=== PATIENT | female | born 1970 | race Caucasian/White ===

== ENCOUNTER 2018-03-17 15:48 | Emergency (ER) | payer SELFPAY ==
[2018-03-17 16:07] VITALS: BP 116/84
--- NOTE | 2018-03-17 16:43 | RAD ---
Indication: RIGHT shoulder and clavicle pain and swelling. Comparison: No relevant prior exams available on the [facility] for comparison. Technique: Internal rotation AP, external rotation Grashey, scapular Y, axillary views RIGHT shoulder Report: Negative for fracture about the shoulder or clavicle. Normal acromioclavicular and glenohumeral joint alignment. Negative for stigmata of calcific tendinopathy. Unremarkable soft tissue contours. IMPRESSION: Negative radiographic exam of the RIGHT shoulder.
[2018-03-17] MEDS ORDERED: Naproxen TAB* 250 MG PO ONE (16:53)
--- NOTE | 2018-03-17 17:04 | UC ---
Upper Extremity HPI - HPI Summary HPI Summary: 47 year old female with no significant pmhx here right shoulder pain. 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 Denies any numbness/tingling or any other complaints. Reports pain with ranging of right shoulder, radiating to mid-sternal area. No exertional symptoms. No cardiac history or familial history of sudden cardiac . - History of Current Complaint Chief Complaint: UCUpperExtremity Stated Complaint: SHOULDER INJURY Time Seen by Provider: 03/17/18 16:43 Onset/Duration: Gradual Onset Severity Initially: Mild Pain Intensity: 0 Character: Sharp Aggravating Factor(s): Movement Alleviating Factor(s): Ice Associated Signs And Symptoms: Positive: Swelling - Allergies/Home Medications Allergies/Adverse Reactions: Allergies Allergy/AdvReac Type Severity Reaction Status Date / Time morphine Allergy Rash And Verified 03/17/18 15:59 Itching paroxetine [From Paxil] Allergy See Comment Verified 03/17/18 16:00 Home Medications: Home Medications NK [No Home Medications Reported] 03/17/18 [History Confirmed 03/17/18] PMH/Surg Hx/FS Hx/Imm Hx Previously Healthy: Yes - Surgical History Surgical History: Yes Surgery Procedure, Year, and Place: hysterectomy - Family History Known Family History: Negative: Cardiac Disease - Social History Alcohol Use: Occasionally Substance Use Type: None Smoking Status (MU): Never Smoked Tobacco Review of Systems Constitutional: Negative Skin: Negative Eyes: Negative ENT: Negative Respiratory: Negative Cardiovascular: Negative Gastrointestinal: Negative Genitourinary: Negative Motor: Negative Neurovascular: Negative Musculoskeletal: Decreased ROM - right shoulder Neurological: Negative Psychological: Negative All Other Systems Reviewed And Are Negative: Yes Physical Exam Triage Information Reviewed: Yes Appearance: Well-Appearing, No Pain Distress Vital Signs: Initial Vital Signs Temp 36.8 C 03/17/18 15:58 Pulse 67 03/17/18 15:58 Resp 18 03/17/18 15:58 BP 116/84 03/17/18 15:58 Pulse Ox 99 03/17/18 15:58 Respiratory Exam: Normal Cardiovascular Exam: Normal Abdominal Exam: Normal Musculoskeletal Exam: Normal Musculoskeletal: Positive: ROM Limited @ - right shoulder Skin Exam: Normal Upper Extremity Course/Dx - Differential Dx/Diagnosis Differential Diagnosis/HQI/PQRI: Arthritis, Bursitis, Strain Provider Diagnoses: shoulder strain. EKG to r/o cardiac etiology (unlikely) Discharge - Sign-Out/Discharge Documenting (check all that apply): Discharge/Admit/Transfer - Discharge Plan Condition: Good Disposition: HOME Patient Education Materials: Shoulder Sprain (ED) Referrals: Stephanie RUSH,Kevin Byrd [Primary Care Provider] - - Billing Disposition and Condition Condition: GOOD Disposition: Home
== END 2018-03-17 17:21 | disposition home or self-care (01) ==
LOC: UCEAST 15:48
DX: S46.911A Strain of unspecified muscle, fascia and tendon at shoulder and upper arm level, right arm, initial encounter (principal); X50.9XXA Other and unspecified overexertion or strenuous movements or postures, initial encounter; Y93.F2 Activity, caregiving, lifting; Y92.199 Unspecified place in other specified residential institution as the place of occurrence of the external cause; Y99.0 Civilian activity done for income or pay; Z88.5 Allergy status to narcotic agent; Z88.8 Allergy status to other drugs, medicaments and biological substances
CPT/HCPCS: 93005; 99202; A9270-GY; G0463

== ENCOUNTER 2018-08-13 07:35 | Emergency (ER) | payer BC ==
--- NOTE | 2018-08-13 07:40 | UC ---
Respiratory Complaint HPI - HPI Summary HPI Summary: Patient is 47 year old female , without any significant past medical history who present today with upper respiratory congestion and cough for 4 days . She also notices that her voice is changing and she feels like she is losing her voice. Reports productive cough, producing greenish phlegm, there is associated frontal headache. Some sick contacts at work Denies any fever, chills, cough chest pain or shortness of breath . Denies any abdominal pain , nausea or vomiting , diarrhea or constipation. - History of Current Complaint Stated Complaint: CHEST/HEAD CONGESTION Time Seen by Provider: 08/13/18 07:37 Hx Obtained From: Patient - Allergies/Home Medications Allergies/Adverse Reactions: Allergies Allergy/AdvReac Type Severity Reaction Status Date / Time morphine Allergy Rash And Verified 08/13/18 07:47 Itching paroxetine [From Paxil] Allergy See Comment Verified 08/13/18 07:47 Home Medications: Home Medications NK [No Home Medications Reported] 08/13/18 [History Confirmed 08/13/18] PMH/Surg Hx/FS Hx/Imm Hx - Additional Past Medical History Additional PMH: No significant past medical history Had hysterectomy Previously Healthy: Yes - Surgical History Surgical History: Yes Surgery Procedure, Year, and Place: hysterectomy - Family History Known Family History: Negative: Cardiac Disease - Social History Alcohol Use: Occasionally Substance Use Type: None Smoking Status (MU): Never Smoked Tobacco Review of Systems All Other Systems Reviewed And Are Negative: Yes Constitutional: Positive: Negative Skin: Positive: Negative Eyes: Positive: Negative ENT: Positive: Sore Throat, Sinus Congestion Respiratory: Positive: Cough Cardiovascular: Positive: Negative Gastrointestinal: Positive: Negative Genitourinary: Positive: Negative Motor: Positive: Negative Neurovascular: Positive: Negative Musculoskeletal: Positive: Negative Neurological: Positive: Negative Psychological: Positive: Negative Is Patient Immunocompromised?: No Physical Exam - Summary Physical Exam Summary: Physical Exam: Const: Appears well. No signs of apparent distress present. Alert and oriented x 3. Musculo: Walks with a normal gait. Head/Face: Atraumatic, normocephalic on inspection. Eyes: EOMI and PERRLA in both eyes. Conjunctivae clear. No discharge noted ENT: Hearing normal, TM normal appearing bilaterally . Mild pharyngeal erythema without any exudates Note tender lymphadenopathy Respiratory: Respirations are unlabored. Lungs clear to auscultation bilaterally, no wheezing , rhonchi or rales noted . CVS: Regular rate and Rhythm, S1S2 normal , no murmurs identified. Extremities: Peripheral circulation is grossly normal. Pulses 2+ Abdomen : Soft non tender , nondistended , Bowel sounds present . No guarding , rebound tenderness or rigidity noted. Skin: No lesions or rash located on the upper extremities or on the lower extremities. Neuro: Cranial nerves II to XII intact, motor and sensory intact. DTR Intact bilaterally. Mood is normal. Affect is normal. Triage Information Reviewed: Yes Vital Signs Reviewed: Yes Respiratory Course/Dx - Course Course Of Treatment: During the visit today, we discussed the findings which appeared to be consistent with viral upper respiratory illness along with laryngitis . Discussed that we can check for influenza but she is already 4 days since onset and will not be a good candidate for Tamiflu so plan to hold off testing. Patient expressed understanding . - Differential Dx/Diagnosis Provider Diagnoses: Viral upper respiratory illness. Laryngitis Discharge - Sign-Out/Discharge Documenting (check all that apply): Patient Departure All imaging exams completed and their final reports reviewed: No Studies - Discharge Plan Condition: Stable Disposition: HOME Patient Education Materials: Laryngitis (ED), Viral Syndrome (ED) Forms: *Work Release Referrals: Stephanie RUSH,Kevin Byrd [Primary Care Provider] - 3 Days Additional Instructions: Take ibuprofen as needed for fever Keep yourself hydrated Saline gargles will be helpful Voice test will be helpful Follow up with your primary care doctor in 2- 3 days Return to Urgent care / ER if symptoms get worse. - Billing Disposition and Condition Condition: STABLE Disposition: Home
[2018-08-13 07:47] VITALS: BP 111/77
== END 2018-08-13 08:21 | disposition home or self-care (01) ==
LOC: UCEAST 07:35
DX: J06.9 Acute upper respiratory infection, unspecified (principal); J04.0 Acute laryngitis; Z88.5 Allergy status to narcotic agent; Z88.8 Allergy status to other drugs, medicaments and biological substances
CPT/HCPCS: 99211; G0463